=== PATIENT | female | born 1950 ===

== ENCOUNTER 2016-05-16 08:07 | Outpatient (CLI) | payer MEDICARE, OTHER | END 2016-05-16 08:08 | disposition home or self-care (01) | LOC: NAV LABSP 08:07 | PROVIDERS: ATTEND Family Medicine | DX: F32.9 Major depressive disorder, single episode, unspecified (principal); I10 Essential (primary) hypertension | CPT/HCPCS: 36415; 80164 ==

== ENCOUNTER 2016-08-01 08:35 | Outpatient (CLI) | payer MEDICARE, OTHER ==
[2016-08-01 12:12] LABS: #Eosinphils 0.1 thou/uL (0.0-0.7); #Lymphocytes 2.1 thou/uL (1.20-3.40); #Monocytes 0.4 thou/uL (0.11-0.59); #Neutrophils 2.3 thou/uL (1.40-6.50); %Basophils 0.7 % (0.0-1.0); %Eosinophils 2.6 % (0.0-10.0); %Lymphocytes 41.6 % (21.0-51.0); %Monocytes 8.6 % (0.0-10.0); %Neutrophils 46.6 % (42.0-75.0); Hemoglobin 14.2 g/dL (12.0-16.0); Mean Corpuscular HGB CONC 31.8 g/dL (32.0-36.0); Mean Corpuscular Hemoglobin 28.6 pg (27.0-31.0); Mean Platelet Volume 7.5 fL (7.4-10.4); Platelet Count 150 thou/uL (130-400); RBC Distribution Width 11.9 % (11.5-14.5); Red Blood Cell (RBC) Count 4.95 mill/uL (4.20-5.40)
[2016-08-01 12:25] LABS: Hemoglobin A1c 5.3 % (4.0-6.0)
[2016-08-01 12:26] LABS: ALT (SGPT) 8 U/L (8-55); AST (SGOT) 10 U/L (5-34); Albumin 3.4 g/dL (3.4-4.8); Alkaline Phosphatase 40 U/L (40-150); Anion Gap 12 mmol/L (10-20); BUN (Urea Nitrogen) 15 mg/dL (9.8-20.1); Bilirubin, Total 0.2 mg/dL (0.2-1.2); Calc. Creatinine Clearance 0 mL/min (70-130); Calcium 8.9 mg/dL (7.8-10.44); Carbon Dioxide 29 mmol/L (23-31); Cardiac Risk 2.8 (Less than 4.5); Chloride 105 mmol/L (98-107); Cholesterol 139 mg/dl (< 200 Desired); Estimated GFR-MDRD 84; Globulin 2.7 g/dL (2.4-3.5); Glucose 77 mg/dL (80-115); HDL Cholesterol 50 mg/dL (>60 Neg Risk); LDL Cholesterol, Calculated 78 mg/dL; Potassium 3.9 mmol/L (3.5-5.1); Protein, Total 6.1 g/dL (6.0-8.3); Sodium 142 mmol/L (136-145); Triglycerides 53 mg/dL (Less than 150)
[2016-08-01 17:08] LABS: Valproic Acid (Depakene) 53.3 ug/mL (50.0-100.0)
== END 2016-08-01 08:36 | disposition home or self-care (01) ==
LOC: NAV LABSP 08:35
PROVIDERS: ATTEND Family Medicine
DX: I10 Essential (primary) hypertension (principal); F32.9 Major depressive disorder, single episode, unspecified; E11.9 Type 2 diabetes mellitus without complications
CPT/HCPCS: 36415; 80053; 80061; 80164; 83036; 84443; 85025

== ENCOUNTER 2016-10-30 11:18 | Outpatient (CLI) | payer MEDICARE, OTHER | END 2016-10-30 11:19 | disposition home or self-care (01) | LOC: NAV LABSP 11:18 | PROVIDERS: ATTEND Family Medicine | DX: F32.9 Major depressive disorder, single episode, unspecified (principal); I10 Essential (primary) hypertension | CPT/HCPCS: 36415; 80164 ==